=== PATIENT | female | born 1960 | race Caucasian/White ===

== ENCOUNTER → 2016-11-28 | Outpatient (CLI) | payer OTHER ==
--- NOTE | 2016-11-28 10:47 | DX ---
Chest, PA and Lateral History: Cough, spasms, R05 Comparison: February 27, 2016 Findings: There is stable elevation of the right hemidiaphragm, consistent with a congenital eventrat ion. Lungs are clear, without infiltrate or consolidation. Heart size is normal. There is no adenopat hy or mass lesion. There is no pleural effusion or pneumothorax. Bones are unremarkable for age. The thoracic spine specifically looks normal, without compression abnormality or disk space narrowing. Impression: Normal.
== END ==
LOC: BMCIMAGING 09:13
PROVIDERS: ATTEND Family Medicine
DX: R05 Cough (principal)

== ENCOUNTER → 2016-12-20 | Outpatient (CLI) | payer OTHER ==
[~2016-12-20] MED LIST: IOPAMIDOL (ISOVUE-300) 100 ML BTL IV ONE
== END ==
LOC: FIMAGING 14:32
PROVIDERS: ATTEND Family Medicine
DX: R05 Cough (principal); K44.9 Diaphragmatic hernia without obstruction or gangrene; K76.0 Fatty (change of) liver, not elsewhere classified; M47.9 Spondylosis, unspecified
CPT/HCPCS: Q9967

== ENCOUNTER → 2017-01-28 | Outpatient (CLI) | payer OTHER | LOC: BMCIMAGING 07:48 | PROVIDERS: ATTEND Family Medicine | DX: K76.0 Fatty (change of) liver, not elsewhere classified (principal) ==

== ENCOUNTER → 2018-02-11 | Outpatient (CLI) | payer OTHER | LOC: BMCIMAGING 08:26 | PROVIDERS: ATTEND Family Medicine | DX: Z12.31 Encounter for screening mammogram for malignant neoplasm of breast (principal) ==

== ENCOUNTER → 2019-02-11 | Outpatient (CLI) | payer OTHER | LOC: BMCIMAGING 16:51 | PROVIDERS: ATTEND Family Medicine | DX: R05 Cough (principal) ==

== ENCOUNTER → 2019-03-18 | Outpatient (CLI) | payer OTHER | LOC: BMCIMAGING 08:09 ==